=== PATIENT | female | born 1950 | race Two or more races ===

== ENCOUNTER 2020-10-08 10:31 | Emergency (ER) | payer BC, OTHER ==
[~2020-10-08] VITALS: Ht 157.5 cm; Wt 45.4 kg
[2020-10-08 10:43] VITALS: BP 139/87
--- NOTE | 2020-10-08 10:45 | NUR ---
BIBS FOR C/O L FOOT PAIN S/P HITTING BED FRAME 1 WEEK AGO. RATES PAIN 10. NO APPARENT DEFORMITY NOTED. WILL CONTINUE TO MONITOR THE PATIENT.
[2020-10-08] MEDS ORDERED: NAPR-1009 PO (11:56)
== END 2020-10-08 12:13 | disposition home or self-care (01) ==
LOC: ER 10:35
DX: S92.332A Displaced fracture of third metatarsal bone, left foot, initial encounter for closed fracture (principal); F10.10 Alcohol abuse, uncomplicated; Y90.9 Presence of alcohol in blood, level not specified; Z79.899 Other long term (current) drug therapy; W01.198A Fall on same level from slipping, tripping and stumbling with subsequent striking against other object, initial encounter; Y93.89 Activity, other specified; Y92.89 Other specified places as the place of occurrence of the external cause; Y99.8 Other external cause status
CPT/HCPCS: 73502; 73630-TC